=== PATIENT | male | born 1945 | race Caucasian/White ===

== ENCOUNTER 2019-10-15 06:45 | Inpatient (IN) ==
[~2019-10-15 06:45] MED LIST: Aspirin 81 MG TAB.CHEW PO ONE; Dextrose 50 % in Water (Vial) 30 ML, Sodium Bicarbonate 20 MEQ, Lidocaine 1% 5 ML, Insu... TH ONE; Dextrose 50 % in Water (Vial) 30 ML, Sodium Bicarbonate 20 MEQ, Potassium Chloride 15 M... TH ONE; Heparin 15,000 UNIT in 0.9 % Sodium Chloride 500 ML IV ONE; Insulin Human Regular 100 UNIT in 0.9 % Sodium Chloride 100 ML IV PRN; Norepinephrine 4 MG in 0.9 % Sodium Chloride 250 ML IVC PRN
[2019-10-15] MEDS ORDERED: NiCARdipine 2.5 MG/10 ML Syringe IVPB ONE (06:53)
[2019-10-15] MEDS ORDERED: Tranexamic Acid 1,000 MG/10 ML VIAL ONE ×2 (06:57→11:16)
[2019-10-15] MEDS ORDERED: Protamine Sulfate 250 MG/25 ML VIAL IVP ONE (06:57)
[2019-10-15] MEDS ORDERED: *HR* Rocuronium Bromide 50 MG/5 ML VIAL ONE ×2 (06:57→10:10)
[2019-10-15] MEDS ORDERED: Famotidine 20 MG/2 ML VIAL ONE (06:57)
[2019-10-15] MEDS ORDERED: *HR* Etomidate 20 MG/10 ML AMPUL IVP ONE (06:57)
[2019-10-15] MEDS ORDERED: Calcium Gluconate 1,000 MG/10 ML VIAL ONE (06:57)
[2019-10-15] MEDS ORDERED: *HR* PHENYLEPHRINE 1,000 MCG/10 ML SYRINGE IVP ONE ×3 (06:57→12:27)
[2019-10-15] MEDS ORDERED: *HR* Midazolam HCl 5 MG/5 ML VIAL IVP ONE (06:58)
[2019-10-15] MEDS ORDERED: *HR* FentaNYL (PF) 1,000 MCG/20 ML VIAL ONE (06:58)
[2019-10-15] MEDS ORDERED: CeFAZolin Syr 2,000MG/20 ML 2,000 MG/20 ML SYRINGE IVPB ONE (07:07)
[2019-10-15] MEDS ORDERED: Albuterol 2.5 MG/3 ML NEBULIZER IH PRN (07:07)
[2019-10-15] MEDS: Chlorhexidine Rinse 15 ML MOUTHWASH MM SCH ×3 (07:37→21:02)
[2019-10-15] MEDS ORDERED: *HR* LORazepam 2 MG/ML VIAL IVP PRN (07:40)
[2019-10-15] MEDS ORDERED: Verapamil 5 MG/2 ML VIAL ONE (07:48)
[2019-10-15 08:43] LABS: ABG Base Excess -2 mEq/L (-2 to 3); ABG Chloride 107 mEq/L (98-107); ABG Glucose 126 mg/dL (60-95); ABG HCO3 25 mEq/L (21-27); ABG Ionized Calcium 1.11 mmol/L (1.15-1.35); ABG Oxygen Saturation 99 % (95-98); ABG PCO2 54 mmHg (35-45); ABG PH 7.28 pH Units (7.32-7.45); ABG PO2 141 mmHg (85-104); ABG TCO2 27 mEq/L (20-26)
[2019-10-15] MEDS ORDERED: niCARdipine 40 MG/200 ML MLS IVC ONE (09:15)
[2019-10-15] MEDS ORDERED: Tranexamic Acid 1,000 MG/10 ML VIAL IVP ONE (10:03)
[2019-10-15] MEDS ORDERED: *HR* Heparin 10,000 UNIT/10 ML VIAL IV ONE (10:03)
[2019-10-15] MEDS ORDERED: Heparin 1,000 UNITS/500 mL IV.SOLN IVC ONE (10:03)
[2019-10-15] MEDS ORDERED: Mannitol 25% vial 12.5 GM/50 ML VIAL IVP ONE (10:03)
[2019-10-15] MEDS ORDERED: *HR* Phenylephrine 10 MG/ML VIAL IVC ONE (10:03)
[2019-10-15] MEDS ORDERED: *HR* Magnesium Sulfate 2 GM/50 ML PIGGYBACK IVPB ONE (10:03)
[2019-10-15] MEDS ORDERED: Albumin Human 25% 25 GM/100 ML IV.SOLN IV ONE (10:03)
[2019-10-15] MEDS ORDERED: Lidocaine 2% Syringe 100 MG/5 ML IV ONE (10:03)
[2019-10-15 10:20] LABS: ABG Base Excess -1 mEq/L (-2 to 3); ABG Chloride 108 mEq/L (98-107); ABG Glucose 181 mg/dL (60-95); ABG HCO3 24 mEq/L (21-27); ABG Ionized Calcium 1.13 mmol/L (1.15-1.35); ABG Oxygen Saturation 99 % (95-98); ABG PCO2 42 mmHg (35-45); ABG PH 7.37 pH Units (7.32-7.45); ABG PO2 159 mmHg (85-104); ABG TCO2 25 mEq/L (20-26)
[2019-10-15 10:25] LABS: ABG Base Excess -2 mEq/L (-2 to 3); ABG Chloride 102 mEq/L (98-107); ABG Glucose 275 mg/dL (60-95); ABG HCO3 24 mEq/L (21-27); ABG Ionized Calcium 1.02 mmol/L (1.15-1.35); ABG Oxygen Saturation 100 % (95-98); ABG PCO2 43 mmHg (35-45); ABG PH 7.35 pH Units (7.32-7.45); ABG PO2 501 mmHg (85-104); ABG TCO2 25 mEq/L (20-26)
[2019-10-15 11:03] LABS: ABG Base Excess -1 mEq/L (-2 to 3); ABG Chloride 98 mEq/L (98-107); ABG Glucose 258 mg/dL (60-95); ABG HCO3 25 mEq/L (21-27); ABG Ionized Calcium 1.03 mmol/L (1.15-1.35); ABG Oxygen Saturation 100 % (95-98); ABG PCO2 42 mmHg (35-45); ABG PH 7.37 pH Units (7.32-7.45); ABG PO2 470 mmHg (85-104); ABG TCO2 26 mEq/L (20-26)
[2019-10-15 11:30] LABS: ABG Base Excess -1 mEq/L (-2 to 3); ABG Chloride 101 mEq/L (98-107); ABG Glucose 232 mg/dL (60-95); ABG HCO3 25 mEq/L (21-27); ABG Ionized Calcium 1.22 mmol/L (1.15-1.35); ABG Oxygen Saturation 100 % (95-98); ABG PCO2 44 mmHg (35-45); ABG PH 7.36 pH Units (7.32-7.45); ABG PO2 398 mmHg (85-104); ABG TCO2 26 mEq/L (20-26)
[2019-10-15] MEDS ORDERED: Albumin Human 5% 50.0 GM/1,000 ML VIAL ONE (12:08)
[2019-10-15 12:13] LABS: ABG Base Excess -3 mEq/L (-2 to 3); ABG Chloride 103 mEq/L (98-107); ABG Glucose 196 mg/dL (60-95); ABG HCO3 22 mEq/L (21-27); ABG Ionized Calcium 1.41 mmol/L (1.15-1.35); ABG Oxygen Saturation 99 % (95-98); ABG PCO2 40 mmHg (35-45); ABG PH 7.35 pH Units (7.32-7.45); ABG PO2 147 mmHg (85-104); ABG TCO2 23 mEq/L (20-26)
[2019-10-15] MEDS ORDERED: Acetaminophen 325 MG TABLET PO PRN (12:32)
[2019-10-15] MEDS ORDERED: Potassium Chloride 40 MEQ/200 ML BAG IVPB PRN (12:32)
[2019-10-15] MEDS ORDERED: Insulin Regular, Human 100 UNIT/ML IV PRN (12:32)
[2019-10-15] MEDS ORDERED: *HR* Promethazine 25 MG/ML VIAL IVP PRN (12:32)
[2019-10-15] MEDS ORDERED: Ondansetron 4 MG/2 ML VIAL IVP PRN (12:32)
[2019-10-15] MEDS ORDERED: *HR* Dextrose 50 % in Water (Syg) 50 ML SYRINGE IVP PRN (12:32)
[2019-10-15] MEDS ORDERED: Naloxone 0.4 MG/ML INJ IVP PRN (12:32)
[2019-10-15] MEDS: Norepinephrine 4 MG in 0.9 % Sodium Chloride 250 ML IVC SCH (12:33)
[2019-10-15] MEDS: Insulin Human Regular 100 UNIT in 0.9 % Sodium Chloride 100 ML IVC SCH (12:45)
[2019-10-15 12:51] LABS: ABG Base Excess -7 mEq/L (-2 to 3); ABG HCO3 23 mEq/L (21-27); ABG Oxygen Saturation 99 % (95-98); ABG PCO2 70 mmHg (35-45); ABG PH 7.12 pH Units (7.32-7.45); ABG PO2 163 mmHg (85-104); ABG TCO2 25 mEq/L (20-26); Blood Gas Modality AF; Blood Gas VT 480 cc
[2019-10-15 12:58] LABS: ABG Base Excess -5 mEq/L (-2 to 3); ABG HCO3 23 mEq/L (21-27); ABG Oxygen Saturation 100 % (95-98); ABG PCO2 56 mmHg (35-45); ABG PH 7.21 pH Units (7.32-7.45); ABG PO2 210 mmHg (85-104); ABG TCO2 24 mEq/L (20-26); Blood Gas Modality AF; Blood Gas VT 480 cc
[2019-10-15] MEDS ORDERED: 0.9 % Sodium Chloride 500 ML ONE (13:04)
[2019-10-15 13:41] LABS: BUN/Creatinine Ratio 17 (6-26); Blood Urea Nitrogen 23 mg/dL (8-23); Calcium 8.9 mg/dL (8.6-10.3); Carbon Dioxide 22 mEq/L (23-29); Chloride 108 mEq/L (98-107); Glucose 164 mg/dL (70-105); Magnesium 2.4 mg/dL (1.6-2.6); Osmolality,Calculated 295 (280-300); Potassium 4.7 mEq/L (3.5-5.1); Sodium 139 mEq/L (136-145); eGFR For African Americans > 60 (> 60); eGFR For Non-African Americans 52 (> 60)
[2019-10-15 13:44] LABS: INR 1.6
[2019-10-15 13:47] LABS: Prothrombin Time 18.3 Seconds (9.4-12.1)
[2019-10-15] MEDS: 0.9 % Sodium Chloride 1,000 ML IVC SCH (13:56)
[2019-10-15 14:00] LABS: Basophils # 0.1 K/mcL (0.0-0.2); Basophils % 0.5 %; Eosinophils # 0.2 K/mcL (0.0-0.6); Eosinophils % 0.9 %; Hematocrit 30.9 % (37.5-50.1); Hemoglobin 10.7 g/dL (12.9-16.9); Lymphocytes % 19.6 %; Mean Corpuscular HGB Conc 34.6 g/dL (31.6-35.5); Mean Corpuscular Hemoglobin 31.7 pg (28.0-33.3); Mean Corpuscular Volume 91.4 fL (83.0-100.0); Mean Platelet Volume 10.8 fL (9.4-12.4); Monocytes # 1.9 K/mcL (0.0-1.3); Monocytes % 7.2 %; Neutrophils # 18.2 K/mcL (1.6-8.9); Platelet Count 146 K/mcL (140-400); Red Blood Count 3.38 M/mcL (4.19-5.50); Red Cell Distribution Width 12.7 % (11.5-14.5); Segmented Neutrophils % 70.8 %; White Blood Count 25.7 K/mcL (4.3-11.1)
[2019-10-15 14:02] LABS: Platelet Estimate Normal (Normal)
[2019-10-15 14:34] LABS: ABG Base Excess -2 mEq/L (-2 to 3); ABG HCO3 23 mEq/L (21-27); ABG Oxygen Saturation 99 % (95-98); ABG PCO2 39 mmHg (35-45); ABG PH 7.39 pH Units (7.32-7.45); ABG PO2 119 mmHg (85-104); ABG TCO2 24 mEq/L (20-26); Blood Gas Modality AF; Blood Gas VT 750 cc
[2019-10-15] MEDS: Ringers Solution, Lactated 1,000 ML IVC SCH (15:52)
[2019-10-15] MEDS: ceFAZolin 2,000 MG in 0.9 % Sodium Chloride 100 ML IVPB SCH ×2 (16:09→23:36)
[2019-10-15] MEDS: niCARdipine 20 MG in 0.9 % Sodium Chloride 192 ML IVC SCH (16:15)
[2019-10-15] MEDS: *HR* OxyCODONE/APAP 5/325 TABLET PO PRN ×2 (16:30→21:02)
[2019-10-15] MEDS: *HR* FentaNYL (PF) 100 MCG/2 ML VIAL IVP PRN ×2 (16:30→23:37)
[2019-10-15 18:30] LABS: ABG Base Excess 1 mEq/L (-2 to 3); ABG HCO3 26 mEq/L (21-27); ABG Oxygen Saturation 95 % (95-98); ABG PCO2 46 mmHg (35-45); ABG PH 7.36 pH Units (7.32-7.45); ABG PO2 81 mmHg (85-104); ABG TCO2 28 mEq/L (20-26)
[2019-10-16] MEDS: Ringers Solution, Lactated 1,000 ML IVC SCH (00:23)
[2019-10-16] MEDS: *HR* OxyCODONE/APAP 5/325 TABLET PO PRN ×4 (02:09→20:06)
[2019-10-16] MEDS: 0.9 % Sodium Chloride 1,000 ML IVC SCH ×2 (03:08→16:53)
[2019-10-16 03:34] LABS: Calcium 8.5 mg/dL (8.6-10.3); Potassium 4.1 mEq/L (3.5-5.1)
[2019-10-16] MEDS: *HR* FentaNYL (PF) 100 MCG/2 ML VIAL IVP PRN ×2 (03:47→10:18)
[2019-10-16 03:58] LABS: Basophils % 0.3 %; Hematocrit 18.6 % (37.5-50.1); Hemoglobin 6.2 g/dL (12.9-16.9); Immature Granulocytes % 0.3 % (0-4); Immature Platelets 4.2 % (1.1-6.1); Lymphocytes # 0.3 K/mcL (0.6-4.6); Lymphocytes % 4.4 %; Mean Corpuscular HGB Conc 33.3 g/dL (31.6-35.5); Mean Corpuscular Hemoglobin 31.2 pg (28.0-33.3); Mean Corpuscular Volume 93.5 fL (83.0-100.0); Mean Platelet Volume 10.8 fL (9.4-12.4); Monocytes # 0.6 K/mcL (0.0-1.3); Monocytes % 8.7 %; Neutrophils # 5.7 K/mcL (1.6-8.9); Red Blood Count 1.99 M/mcL (4.19-5.50); Red Cell Distribution Width 13.3 % (11.5-14.5); Segmented Neutrophils % 86.3 %; White Blood Count 6.6 K/mcL (4.3-11.1)
[2019-10-16 04:09] LABS: Platelet Count 87 K/mcL (140-400)
[2019-10-16] MEDS ORDERED: 0.9 % Sodium Chloride 250 ML ONE ×2 (04:56→09:01)
[2019-10-16 04:58] LABS: Anisocytosis 1+ (Not Present)
[2019-10-16 04:59] LABS: Platelet Estimate Slight Decrease (Normal)
[2019-10-16] MEDS: Aspirin 81 MG TAB.CHEW PO SCH (08:21)
[2019-10-16] MEDS: Pantoprazole 40 MG VIAL IVP SCH (08:21)
[2019-10-16] MEDS: Chlorhexidine Rinse 15 ML MOUTHWASH MM SCH ×2 (08:21→20:06)
[2019-10-16] MEDS: Insulin Human Regular 100 UNIT in 0.9 % Sodium Chloride 100 ML IVC SCH (12:50)
[2019-10-16] MEDS: Norepinephrine 4 MG in 0.9 % Sodium Chloride 250 ML IVC SCH (12:50)
[2019-10-16] MEDS: niCARdipine 20 MG in 0.9 % Sodium Chloride 192 ML IVC SCH (12:51)
[2019-10-16] MEDS ORDERED: Dextrose Gel 15 GM/37.5 ML TUBE PO PRN ×2 (13:11)
[2019-10-16] MEDS ORDERED: D5% in Water 1,000 ML IVC PRN (13:11)
[2019-10-16] MEDS ORDERED: *HR* Dextrose 50 % in Water (Syg) 50 ML SYRINGE IVP PRN (13:11)
[2019-10-16] MEDS: Insulin LISPRO 300 UNITS/3 ML VIAL SQ SCH (16:53)
[2019-10-16] MEDS ORDERED: Insulin LISPRO 300 UNITS/3 ML VIAL SQ SCH (21:00)
[2019-10-17] MEDS ORDERED: Dexmedetomidine HCl 400 MCG/100 ML MLS IVC ONE (00:14)
[2019-10-17] MEDS ORDERED: Dexmedetomidine HCl 400 MCG/100 ML MLS IVC SCH (00:15)
[2019-10-17] MEDS ORDERED: Thiamine (B-1) 100 MG, Folic Acid 1 MG, MVI, adult with vitamin K 10 ML in 0.9 % Sodi... IVPB SCH (00:26)
[2019-10-17 03:46] LABS: Eosinophils % 0.2 %; Monocytes # 0.6 K/mcL (0.0-1.3); Monocytes % 9.5 %; White Blood Count 6.6 K/mcL (4.3-11.1)
[2019-10-17 03:48] LABS: Basophils % 0.5 %; Hematocrit 25.1 % (37.5-50.1); Hemoglobin 8.5 g/dL (12.9-16.9); Immature Granulocytes % 0.5 % (0-4); Immature Platelets 3.8 % (1.1-6.1); Lymphocytes # 0.6 K/mcL (0.6-4.6); Lymphocytes % 8.6 %; Mean Corpuscular HGB Conc 33.9 g/dL (31.6-35.5); Mean Corpuscular Hemoglobin 30.9 pg (28.0-33.3); Mean Corpuscular Volume 91.3 fL (83.0-100.0); Neutrophils # 5.3 K/mcL (1.6-8.9); Nucleated Red Blood Cells 0.3 /100 WBC (0); Red Blood Count 2.75 M/mcL (4.19-5.50); Segmented Neutrophils % 80.7 %
[2019-10-17 03:50] LABS: Platelet Count 90 K/mcL (140-400)
[2019-10-17 03:59] LABS: Calcium 7.9 mg/dL (8.6-10.3)
[2019-10-17] MEDS: 0.9 % Sodium Chloride 1,000 ML IVC SCH (05:06)
[2019-10-17] MEDS: Chlorhexidine Rinse 15 ML MOUTHWASH MM SCH ×2 (07:45→20:53)
[2019-10-17] MEDS: Insulin LISPRO 300 UNITS/3 ML VIAL SQ SCH ×4 (07:45→20:56)
[2019-10-17] MEDS: Aspirin 81 MG TAB.CHEW PO SCH (07:45)
[2019-10-17] MEDS: Pantoprazole 40 MG VIAL IVP SCH (07:46)
[2019-10-17] MEDS ORDERED: Acetaminophen 325 MG TABLET PO PRN (09:30)
[2019-10-17] MEDS ORDERED: D5% in Water 1,000 ML IVC PRN (09:30)
[2019-10-17] MEDS ORDERED: *HR* LORazepam 2 MG/ML VIAL IVP PRN (09:30)
[2019-10-17] MEDS ORDERED: Dextrose Gel 15 GM/37.5 ML TUBE PO PRN ×2 (09:30)
[2019-10-17] MEDS ORDERED: *HR* Promethazine 25 MG/ML VIAL IVP PRN (09:30)
[2019-10-17] MEDS ORDERED: Ondansetron 4 MG/2 ML VIAL IVP PRN (09:30)
[2019-10-17] MEDS ORDERED: Naloxone 0.4 MG/ML INJ IVP PRN (09:30)
[2019-10-17] MEDS ORDERED: Albuterol 2.5 MG/3 ML NEBULIZER IH PRN (09:30)
[2019-10-17] MEDS ORDERED: *HR* Dextrose 50 % in Water (Syg) 50 ML SYRINGE IVP PRN (09:30)
[2019-10-17] MEDS: Beer can PO SCH ×2 (11:15→16:02)
[2019-10-17] MEDS: *HR* OxyCODONE/APAP 5/325 TABLET PO PRN ×3 (14:21→22:14)
[2019-10-17] MEDS: Thiamine (B-1) 100 MG, Folic Acid 1 MG, MVI, adult with vitamin K 10 ML in 0.9 % Sodi... IVPB SCH (16:02)
[2019-10-18] MEDS: *HR* OxyCODONE/APAP 5/325 TABLET PO PRN ×4 (04:54→23:26)
[2019-10-18] MEDS: Fenofibrate 54 MG TABLET PO SCH (08:31)
[2019-10-18] MEDS: amLODIPine 5 MG TABLET PO SCH (08:31)
[2019-10-18] MEDS: Valsartan 160 MG TABLET PO SCH (08:32)
[2019-10-18] MEDS: Chlorhexidine Rinse 15 ML MOUTHWASH MM SCH ×2 (08:32→20:35)
[2019-10-18] MEDS: Aspirin 81 MG TAB.CHEW PO SCH (08:34)
[2019-10-18] MEDS: hydroCHLOROthiazide 25 MG TABLET PO SCH (08:34)
[2019-10-18] MEDS: Beer can PO SCH ×3 (08:38→16:59)
[2019-10-18] MEDS: Insulin LISPRO 300 UNITS/3 ML VIAL SQ SCH ×4 (08:38→23:26)
[2019-10-18] MEDS ORDERED: AMLODIPINE PO SCH (09:00)
[2019-10-18] MEDS ORDERED: [UNRECOGNIZED DRUG - OTHER] PO SCH (09:00)
[2019-10-18] MEDS ORDERED: Pantoprazole 40 MG VIAL IVP SCH (09:00)
[2019-10-18] MEDS ORDERED: HCTHIAZID PO SCH (09:00)
[2019-10-18] MEDS ORDERED: VALSARTAN PO SCH (09:00)
[2019-10-18 10:10] LABS: Basophils % 0.3 %; Eosinophils % 0.5 %; Hematocrit 28.3 % (37.5-50.1); Hemoglobin 9.8 g/dL (12.9-16.9); Immature Granulocytes % 0.7 % (0-4); Lymphocytes # 0.7 K/mcL (0.6-4.6); Lymphocytes % 9.3 %; Mean Corpuscular HGB Conc 34.6 g/dL (31.6-35.5); Mean Corpuscular Hemoglobin 31.4 pg (28.0-33.3); Mean Corpuscular Volume 90.7 fL (83.0-100.0); Mean Platelet Volume 10.8 fL (9.4-12.4); Monocytes # 0.9 K/mcL (0.0-1.3); Monocytes % 11.3 %; Neutrophils # 5.9 K/mcL (1.6-8.9); Nucleated Red Blood Cells 0.4 /100 WBC (0); Platelet Count 165 K/mcL (140-400); Red Blood Count 3.12 M/mcL (4.19-5.50); Red Cell Distribution Width 14.1 % (11.5-14.5); Segmented Neutrophils % 77.9 %; White Blood Count 7.5 K/mcL (4.3-11.1)
[2019-10-18 10:29] LABS: BUN/Creatinine Ratio 25 (6-26); Blood Urea Nitrogen 27 mg/dL (8-23); Calcium 8.4 mg/dL (8.6-10.3); Carbon Dioxide 25 mEq/L (23-29); Chloride 105 mEq/L (98-107); Glucose 154 mg/dL (70-105); Osmolality,Calculated 296 (280-300); Potassium 3.8 mEq/L (3.5-5.1); Sodium 139 mEq/L (136-145); eGFR For African Americans > 60 (> 60); eGFR For Non-African Americans > 60 (> 60)
[2019-10-18] MEDS: Thiamine (B-1) 100 MG, Folic Acid 1 MG, MVI, adult with vitamin K 10 ML in 0.9 % Sodi... IVPB SCH (16:58)
[2019-10-19] MEDS: *HR* OxyCODONE/APAP 5/325 TABLET PO PRN ×5 (04:26→23:58)
[2019-10-19 05:02] LABS: Basophils % 0.4 %; Eosinophils # 0.1 K/mcL (0.0-0.6); Eosinophils % 1.6 %; Hematocrit 28.2 % (37.5-50.1); Hemoglobin 9.6 g/dL (12.9-16.9); Immature Granulocytes % 0.6 % (0-4); Lymphocytes # 0.9 K/mcL (0.6-4.6); Lymphocytes % 12.6 %; Mean Corpuscular Hemoglobin 31.1 pg (28.0-33.3); Mean Corpuscular Volume 91.3 fL (83.0-100.0); Mean Platelet Volume 10.8 fL (9.4-12.4); Monocytes # 0.7 K/mcL (0.0-1.3); Monocytes % 10.4 %; Neutrophils # 5.1 K/mcL (1.6-8.9); Platelet Count 175 K/mcL (140-400); Red Blood Count 3.09 M/mcL (4.19-5.50); Red Cell Distribution Width 13.9 % (11.5-14.5); Segmented Neutrophils % 74.4 %; White Blood Count 6.9 K/mcL (4.3-11.1)
[2019-10-19 05:24] LABS: BUN/Creatinine Ratio 26 (6-26); Blood Urea Nitrogen 25 mg/dL (8-23); Calcium 8.7 mg/dL (8.6-10.3); Carbon Dioxide 27 mEq/L (23-29); Chloride 107 mEq/L (98-107); Glucose 132 mg/dL (70-105); Osmolality,Calculated 294 (280-300); Potassium 3.4 mEq/L (3.5-5.1); Sodium 139 mEq/L (136-145); eGFR For African Americans > 60 (> 60); eGFR For Non-African Americans > 60 (> 60)
[2019-10-19] MEDS: Insulin LISPRO 300 UNITS/3 ML VIAL SQ SCH ×4 (08:12→23:57)
[2019-10-19] MEDS: Chlorhexidine Rinse 15 ML MOUTHWASH MM SCH ×2 (08:24→19:55)
[2019-10-19] MEDS: Fenofibrate 54 MG TABLET PO SCH (08:24)
[2019-10-19] MEDS: hydroCHLOROthiazide 25 MG TABLET PO SCH (08:24)
[2019-10-19] MEDS: Beer can PO SCH ×3 (08:24→17:02)
[2019-10-19] MEDS: Aspirin 81 MG TAB.CHEW PO SCH (08:24)
[2019-10-19] MEDS: amLODIPine 5 MG TABLET PO SCH (08:24)
[2019-10-19] MEDS: Valsartan 160 MG TABLET PO SCH (08:24)
[2019-10-20 02:14] LABS: Basophils % 0.5 %; Eosinophils # 0.2 K/mcL (0.0-0.6); Eosinophils % 2.8 %; Hematocrit 25.8 % (37.5-50.1); Hemoglobin 8.5 g/dL (12.9-16.9); Immature Granulocytes % 0.3 % (0-4); Lymphocytes # 0.9 K/mcL (0.6-4.6); Lymphocytes % 14.1 %; Mean Corpuscular HGB Conc 32.9 g/dL (31.6-35.5); Mean Corpuscular Hemoglobin 30.6 pg (28.0-33.3); Mean Corpuscular Volume 92.8 fL (83.0-100.0); Mean Platelet Volume 10.2 fL (9.4-12.4); Monocytes # 0.6 K/mcL (0.0-1.3); Monocytes % 10.5 %; Neutrophils # 4.4 K/mcL (1.6-8.9); Nucleated Red Blood Cells 0.5 /100 WBC (0); Platelet Count 176 K/mcL (140-400); Red Blood Count 2.78 M/mcL (4.19-5.50); Red Cell Distribution Width 13.8 % (11.5-14.5); Segmented Neutrophils % 71.8 %; White Blood Count 6.1 K/mcL (4.3-11.1)
[2019-10-20 02:23] LABS: BUN/Creatinine Ratio 25 (6-26); Blood Urea Nitrogen 26 mg/dL (8-23); Calcium 8.6 mg/dL (8.6-10.3); Carbon Dioxide 27 mEq/L (23-29); Chloride 105 mEq/L (98-107); Glucose 126 mg/dL (70-105); Osmolality,Calculated 294 (280-300); Potassium 3.8 mEq/L (3.5-5.1); Sodium 139 mEq/L (136-145); eGFR For African Americans > 60 (> 60); eGFR For Non-African Americans > 60 (> 60)
[2019-10-20] MEDS: *HR* OxyCODONE/APAP 5/325 TABLET PO PRN ×2 (04:48→11:37)
[2019-10-20] MEDS: Insulin LISPRO 300 UNITS/3 ML VIAL SQ SCH ×2 (07:57→11:32)
[2019-10-20] MEDS: hydroCHLOROthiazide 25 MG TABLET PO SCH (08:01)
[2019-10-20] MEDS: Valsartan 160 MG TABLET PO SCH (08:01)
[2019-10-20] MEDS: Fenofibrate 54 MG TABLET PO SCH (08:01)
[2019-10-20] MEDS: Aspirin 81 MG TAB.CHEW PO SCH (08:01)
[2019-10-20] MEDS: amLODIPine 5 MG TABLET PO SCH (08:01)
[2019-10-20] MEDS: Beer can PO SCH (08:02)
[2019-10-20] MEDS: Chlorhexidine Rinse 15 ML MOUTHWASH MM SCH (08:02)
[2019-10-20 12:07] VITALS: BP 152/67
== END 2019-10-20 11:52 | disposition other institution (70) | DRG 236 ==
LOC: SAMDAY 06:45 → ICNU 10:45 → 2NNU 10-17 18:10
PROVIDERS: ADMIT Thoracic Surgery (Cardiothoracic Vascular Surgery); ATTEND Thoracic Surgery (Cardiothoracic Vascular Surgery)

== ENCOUNTER 2019-10-23 11:52 | Inpatient (IN) ==
[2019-10-23 12:27] LABS: Basophils % 0.5 %; Eosinophils # 0.1 K/mcL (0.0-0.6); Eosinophils % 0.9 %; Hematocrit 31.8 % (37.5-50.1); Lymphocytes # 0.7 K/mcL (0.6-4.6); Lymphocytes % 9.5 %; Mean Corpuscular HGB Conc 33.3 g/dL (31.6-35.5); Mean Corpuscular Hemoglobin 29.9 pg (28.0-33.3); Mean Corpuscular Volume 89.8 fL (83.0-100.0); Mean Platelet Volume 10.3 fL (9.4-12.4); Monocytes # 0.9 K/mcL (0.0-1.3); Monocytes % 11.2 %; Neutrophils # 5.9 K/mcL (1.6-8.9); Platelet Count 127 K/mcL (140-400); Red Blood Count 3.54 M/mcL (4.19-5.50); Red Cell Distribution Width 13.8 % (11.5-14.5); Segmented Neutrophils % 76.9 %; White Blood Count 7.7 K/mcL (4.3-11.1)
[2019-10-23 12:30] LABS: Hemoglobin 10.6 g/dL (12.9-16.9)
[2019-10-23 12:37] LABS: INR 1.3; Prothrombin Time 14.5 Seconds (9.4-12.1)
[2019-10-23 12:40] LABS: Activated Partial Thrombo Time 29.4 Seconds (26.0-36.0)
[2019-10-23 14:11] LABS: BUN/Creatinine Ratio 20 (6-26); Blood Urea Nitrogen 21 mg/dL (8-23); Calcium 9.7 mg/dL (8.6-10.3); Carbon Dioxide 24 mEq/L (23-29); Chloride 99 mEq/L (98-107); Glucose 126 mg/dL (70-105); Osmolality,Calculated 291 (280-300); Potassium 3.8 mEq/L (3.5-5.1); Sodium 138 mEq/L (136-145); eGFR For African Americans > 60 (> 60); eGFR For Non-African Americans > 60 (> 60)
[2019-10-23] MEDS ORDERED: Isovue-370 500 ML BOTTLE IVP ONE (15:33)
[2019-10-23] MEDS ORDERED: Ondansetron ODT 4 MG TAB.RAPDIS SL PRN (15:43)
[2019-10-23] MEDS ORDERED: Naloxone 0.4 MG/ML INJ IVP PRN (15:43)
[2019-10-23] MEDS ORDERED: Dextrose Gel 15 GM/37.5 ML TUBE PO PRN ×2 (15:49)
[2019-10-23] MEDS ORDERED: D5% in Water 1,000 ML IVC PRN (15:49)
[2019-10-23] MEDS ORDERED: *HR* Dextrose 50 % in Water (Syg) 50 ML SYRINGE IVP PRN (15:49)
[2019-10-23] MEDS ORDERED: *HR* Heparin 5,000 UNIT/ML VIAL IVP PRN ×2 (16:50)
[2019-10-23] MEDS ORDERED: *HR* Heparin 5,000 UNIT/ML VIAL IVP ONE (16:50)
[2019-10-23] MEDS ORDERED: Heparin 25,000 UNIT/250 ML D5W 25,000 UNIT/250 ML IV.SOLN IVC ONE (17:10)
[2019-10-23] MEDS ORDERED: *HR* Heparin 5,000 UNIT/ML VIAL ONE (17:10)
[2019-10-23 17:15] LABS: Hemoglobin 10.2 g/dL (12.9-16.9); Mean Corpuscular Hemoglobin 30.3 pg (28.0-33.3); Platelet Count 111 K/mcL (140-400); Red Blood Count 3.37 M/mcL (4.19-5.50); Red Cell Distribution Width 13.7 % (11.5-14.5); White Blood Count 6.7 K/mcL (4.3-11.1)
[2019-10-23 17:17] LABS: INR 1.2; Prothrombin Time 13.9 Seconds (9.4-12.1)
[2019-10-23] MEDS: Heparin 25,000 UNIT/250 ML D5W 25,000 UNIT/250 ML IV.SOLN IVC SCH (17:17)
[2019-10-23 17:19] LABS: Heparin anti-factor XA UFH < 0.04 IU/mL (0.30-0.70)
[2019-10-23] MEDS ORDERED: *HR* Labetalol 20 MG/4 ML SYRINGE IVP ONE (19:00)
[2019-10-23] MEDS: Insulin LISPRO 300 UNITS/3 ML VIAL SQ SCH (19:25)
[2019-10-23] MEDS: *HR* OxyCODONE Immed Rel 5 MG TABLET PO PRN (19:51)
[2019-10-23] MEDS ORDERED: Perflutren Lipid Microsphere 1.3 ML in 0.9 % Sodium Chloride 8.7 ML IVP ONE (20:44)
[2019-10-23 20:46] LABS: Ethanol < 10 mg/dL (Less than 10)
[2019-10-23 20:57] LABS: Troponin I 0.13 ng/mL (< 0.04)
[2019-10-23] MEDS: Furosemide 20 MG/2 ML VIAL IVP SCH (21:31)
[2019-10-24] MEDS ORDERED: *HR* Enoxaparin 40 MG/0.4 ML SYRINGE SQ SCH (06:00)
[2019-10-24 06:21] LABS: BUN/Creatinine Ratio 21 (6-26); Blood Urea Nitrogen 22 mg/dL (8-23); Calcium 9.5 mg/dL (8.6-10.3); Carbon Dioxide 31 mEq/L (23-29); Chloride 98 mEq/L (98-107); Glucose 119 mg/dL (70-105); Osmolality,Calculated 292 (280-300); Potassium 3.5 mEq/L (3.5-5.1); Sodium 139 mEq/L (136-145); eGFR For African Americans > 60 (> 60); eGFR For Non-African Americans > 60 (> 60)
[2019-10-24 06:55] LABS: Hematocrit 29.3 % (37.5-50.1); Immature Granulocytes % 1.3 % (0-4); Mean Corpuscular Volume 88.3 fL (83.0-100.0); Monocytes % 12.9 %; Red Blood Count 3.32 M/mcL (4.19-5.50)
[2019-10-24 06:57] LABS: Basophils % 0.7 %; Eosinophils # 0.1 K/mcL (0.0-0.6); Eosinophils % 2.2 %; Hemoglobin 9.9 g/dL (12.9-16.9); Immature Platelets 5.3 % (1.1-6.1); Lymphocytes # 0.8 K/mcL (0.6-4.6); Lymphocytes % 14.4 %; Mean Corpuscular HGB Conc 33.8 g/dL (31.6-35.5); Mean Corpuscular Hemoglobin 29.8 pg (28.0-33.3); Mean Platelet Volume 10.1 fL (9.4-12.4); Monocytes # 0.7 K/mcL (0.0-1.3); Neutrophils # 3.7 K/mcL (1.6-8.9); Red Cell Distribution Width 13.8 % (11.5-14.5); Segmented Neutrophils % 68.5 %; White Blood Count 5.4 K/mcL (4.3-11.1)
[2019-10-24 07:03] LABS: Platelet Count 65 K/mcL (140-400)
[2019-10-24] MEDS: Insulin LISPRO 300 UNITS/3 ML VIAL SQ SCH ×3 (08:38→17:45)
[2019-10-24] MEDS: *HR* OxyCODONE Immed Rel 5 MG TABLET PO PRN ×3 (09:00→22:07)
[2019-10-24] MEDS: Furosemide 20 MG/2 ML VIAL IVP SCH ×2 (09:00→22:08)
[2019-10-24] MEDS: Fenofibrate 54 MG TABLET PO SCH (09:03)
[2019-10-24] MEDS: amLODIPine 5 MG TABLET PO SCH (09:03)
[2019-10-24] MEDS: Aspirin 81 MG TAB.CHEW PO SCH (09:03)
[2019-10-24] MEDS: Valsartan 160 MG, hydroCHLOROthiazide 25 MG PO SCH (09:03)
[2019-10-24] MEDS: Heparin 25,000 UNIT/250 ML D5W 25,000 UNIT/250 ML IV.SOLN IVC SCH (13:30)
[2019-10-25 02:50] LABS: Red Cell Distribution Width 13.6 % (11.5-14.5)
[2019-10-25 02:52] LABS: Hematocrit 28.6 % (37.5-50.1); Hemoglobin 9.6 g/dL (12.9-16.9); Immature Platelets 7.3 % (1.1-6.1); Mean Corpuscular HGB Conc 33.6 g/dL (31.6-35.5); Mean Corpuscular Hemoglobin 29.9 pg (28.0-33.3); Mean Corpuscular Volume 89.1 fL (83.0-100.0); Mean Platelet Volume 11.1 fL (9.4-12.4); Red Blood Count 3.21 M/mcL (4.19-5.50); White Blood Count 4.9 K/mcL (4.3-11.1)
[2019-10-25 03:07] LABS: BUN/Creatinine Ratio 24 (6-26); Blood Urea Nitrogen 32 mg/dL (8-23); Calcium 9.3 mg/dL (8.6-10.3); Carbon Dioxide 30 mEq/L (23-29); Chloride 98 mEq/L (98-107); Glucose 118 mg/dL (70-105); Osmolality,Calculated 292 (280-300); Potassium 3.4 mEq/L (3.5-5.1); Sodium 137 mEq/L (136-145); eGFR For African Americans > 60 (> 60); eGFR For Non-African Americans 52 (> 60)
[2019-10-25] MEDS: Heparin 25,000 UNIT/250 ML D5W 25,000 UNIT/250 ML IV.SOLN IVC SCH (06:48)
[2019-10-25] MEDS: Furosemide 20 MG/2 ML VIAL IVP SCH (07:18)
[2019-10-25 07:26] VITALS: BP 129/63
[2019-10-25] MEDS: Insulin LISPRO 300 UNITS/3 ML VIAL SQ SCH ×2 (08:32→11:54)
[2019-10-25] MEDS: Aspirin 81 MG TAB.CHEW PO SCH (08:54)
[2019-10-25] MEDS: amLODIPine 5 MG TABLET PO SCH (08:54)
[2019-10-25] MEDS: Valsartan 160 MG, hydroCHLOROthiazide 25 MG PO SCH (08:55)
[2019-10-25] MEDS: Fenofibrate 54 MG TABLET PO SCH (08:56)
[2019-10-25] MEDS: *HR* OxyCODONE Immed Rel 5 MG TABLET PO PRN ×2 (08:59→15:30)
[2019-10-25] MEDS ORDERED: Apixaban 5 MG TABLET PO SCH ×2 (09:00)
[2019-10-25] MEDS ORDERED: Apixaban 5 MG TABLET PO ONE (10:55)
== END 2019-10-25 16:24 | disposition home or self-care (01) | DRG 175 ==
LOC: 3BNU 11:52 → EMEROOARM 11:52 → SUATTDRO 15:14 → 2NENU 15:24
PROVIDERS: ADMIT Internal Medicine; ATTEND Internal Medicine